=== PATIENT | female | born 1950 | race Hispanic/Latino ===

== ENCOUNTER 2021-10-09 23:48 | Inpatient (IN) | payer MEDICARE, OTHER ==
[~2021-10-09] VITALS: Ht 160 cm; Wt 79.4 kg
[2021-10-10] MEDS ORDERED: ONDANSETRON HCL INJ 2MG/ML 2ML 2 MG/ML VIAL IV STA
[2021-10-10] MEDS ORDERED: Morphine 4mg INJECTION 4 MG/ML INJ IV ONE
[2021-10-10 00:12] LABS: BASOPHILS # (AUTO) 0.1 (0.0-0.1); BASOPHILS % 0.7 % (0.0-1.0); EOSINOPHILS # (AUTO) 0.2 (0.0-0.4); EOSINOPHILS % 1.5 % (0.0-6.0); HEMOGLOBIN 14.1 g/dL (12.0-16.0); LYMPHOCYTES # (AUTO) 1.3 (1.0-3.2); LYMPHOCYTES % 13.6 % (18.0-39.1); MEAN CORPUSCULAR HEMOGLOBIN 30.2 pg (28-32); MEAN CORPUSCULAR HGB CONC 33.6 g/dL (31-35); MEAN CORPUSCULAR VOLUME 89.9 fL (81-99); MONOCYTES # (AUTO) 0.5 (0.2-0.8); MONOCYTES % 5.5 % (4.4-11.3); NEUTROPHILS # (AUTO) 7.6 (2.1-6.9); NEUTROPHILS % 78.4 % (38.7-80.0); PLATELET COUNT 253 x10e3/uL (140-360); RED BLOOD COUNT 4.67 x10e6/uL (3.6-5.1); RED CELL DISTRIBUTION WIDTH 13.9 % (11.7-14.4)
[2021-10-10 00:38] LABS: ALANINE AMINOTRANSFERASE 21 IU/L (0-55); ALBUMIN 3.9 g/dL (3.5-5.0); ALBUMIN/GLOBULIN RATIO 0.9 (0.8-2.0); ALKALINE PHOSPHATASE 79 IU/L (40-150); BLOOD UREA NITROGEN 11 mg/dL (7-26); BUN/CREATININE RATIO 12 (6-25); CALCIUM 10.1 mg/dL (8.4-10.2); CARBON DIOXIDE 25 mmol/L (22-29); CREATINE KINASE 59 IU/L (29-168); CREATININE, SERUM 0.91 mg/dL (0.57-1.11); GLUCOSE 186 mg/dL (74-118)
[2021-10-10 00:45] LABS: ANION GAP 16.6 mmol/L (8-16); CHLORIDE 103 mmol/L (98-107); POTASSIUM 3.6 mmol/L (3.5-5.1); SODIUM 141 mmol/L (136-145)
[2021-10-10 00:48] LABS: CLARITY,URINE CLEAR (CLEAR); COLOR,URINE YELLOW (YELLOW); KETONES,URINE TRACE (NEGATIVE); LEUKOCYTE ESTERASE ,URINE NEGATIVE (NEGATIVE); NITRITE,URINE NEGATIVE (NEGATIVE); PROTEIN,URINE DIPSTICK 2+ (NEGATIVE); URINE UROBILINOGEN 0.2 mg/dL (0.2 - 1)
[2021-10-10 00:55] LABS: BACTERIA,URINE MODERATE /HPF; EPITHELIAL CELLS,URINE FEW /LPF; MUCUS,URINE MANY (RARE); WBC,URINE (MAN) 0-5 /HPF (0-5)
[2021-10-10] MEDS ORDERED: BENZOCAINE/TETRACAINE/BUTAMBEN AERO SPRAY 56 GM CAN TOP ONE (02:00)
[2021-10-10] MEDS ORDERED: PIPERACILLIN/TAZOBACTAM 3.375 GM VIAL ONE (02:08)
[2021-10-10] MEDS: SODIUM CHLORIDE 0.9% 1000ML 1,000 ML IV SCH ×4 (02:15→22:56)
[2021-10-10] MEDS: Morphine 4mg INJECTION 4 MG/ML INJ IV PRN ×3 (05:15→14:52)
[2021-10-10] MEDS ORDERED: IOPAMIDOL 370 MG/ML 100 ML INFUS..BTL INJ ONE (05:53)
[2021-10-10] MEDS: ONDANSETRON HCL INJ 2MG/ML 2ML 2 MG/ML VIAL IV PRN ×2 (09:25→14:40)
[2021-10-10 12:38] VITALS: BP 157/91
[2021-10-10 16:03] VITALS: BP 151/74
[2021-10-10] MEDS ORDERED: HYDRALAZINE HCL 20 MG/ML VIAL IV PRN (18:15)
[2021-10-10] MEDS: HYDROMORPHONE 1MG/1ML INJ IV PRN (18:48)
[2021-10-10 20:00] VITALS: BP 125/66
[2021-10-10] MEDS ORDERED: TRULICITY0.75 MG/0. SC (20:54)
[2021-10-10] MEDS ORDERED: LEVOTHYROXINE88 MCG PO (20:54)
[2021-10-10] MEDS ORDERED: ATORVASTATIN CA10 MG PO (20:54)
[2021-10-10] MEDS ORDERED: GLIPIZIDE5 MG PO (20:54)
[2021-10-10] MEDS ORDERED: METFORMIN HCL500 MG PO (20:54)
[2021-10-10 21:00] VITALS: BP 125/66
[2021-10-11] VITALS (7 sets, daily range): BP systolic 114–167; BP diastolic 54–90
[2021-10-11] MEDS: HYDROMORPHONE 1MG/1ML INJ IV PRN ×2 (02:01→09:29)
[2021-10-11] MEDS: ONDANSETRON HCL INJ 2MG/ML 2ML 2 MG/ML VIAL IV PRN ×2 (02:01→09:29)
[2021-10-11 06:13] LABS: BASOPHILS # (AUTO) 0.1 (0.0-0.1); BASOPHILS % 0.4 % (0.0-1.0); EOSINOPHILS # (AUTO) 0.1 (0.0-0.4); EOSINOPHILS % 0.5 % (0.0-6.0); HEMATOCRIT 41.4 % (34.2-44.1); HEMOGLOBIN 13.5 g/dL (12.0-16.0); LYMPHOCYTES # (AUTO) 1.1 (1.0-3.2); LYMPHOCYTES % 9.5 % (18.0-39.1); MEAN CORPUSCULAR HEMOGLOBIN 29.9 pg (28-32); MEAN CORPUSCULAR HGB CONC 32.6 g/dL (31-35); MEAN CORPUSCULAR VOLUME 91.6 fL (81-99); MONOCYTES % 8.2 % (4.4-11.3); NEUTROPHILS # (AUTO) 9.3 (2.1-6.9); PLATELET COUNT 242 x10e3/uL (140-360); RED BLOOD COUNT 4.52 x10e6/uL (3.6-5.1); RED CELL DISTRIBUTION WIDTH 14.5 % (11.7-14.4)
[2021-10-11] MEDS: Morphine 4mg INJECTION 4 MG/ML INJ IV PRN (06:16)
[2021-10-11 06:50] LABS: ALBUMIN 3.5 g/dL (3.5-5.0); ALBUMIN/GLOBULIN RATIO 0.9 (0.8-2.0); ANION GAP 12.8 mmol/L (8-16); CALCIUM 8.6 mg/dL (8.4-10.2); CREATININE, SERUM 0.98 mg/dL (0.57-1.11); POTASSIUM 3.8 mmol/L (3.5-5.1)
[2021-10-11 06:51] LABS: CHOL/HDL RATIO 4.4 (3.0-3.6); MAGNESIUM 2.1 MG/DL (1.3-2.1); PHOSPHORUS 3.7 MG/DL (2.3-4.7); THYROID STIMULATING HORMONE 2.742 uIU/mL (0.350-4.940)
[2021-10-11] MEDS: SODIUM CHLORIDE 0.9% 1000ML 1,000 ML IV SCH ×2 (09:22→20:26)
[2021-10-11] MEDS: LEVOTHYROXINE SODIUM 100 MCG/VIAL IV SCH (10:42)
[2021-10-11] MEDS ORDERED: SEVOFLURANE INHAL SOLN 250 ML PEN BTL ONE (12:57)
[2021-10-11] MEDS ORDERED: SUCCINYLCHOLINE CHLORIDE 20 MG/ML 10ML VIAL ONE (12:57)
[2021-10-11] MEDS ORDERED: PROPOFOL IV EMULSION 10 MG/ML 20 ML VIAL ONE (12:57)
[2021-10-11] MEDS ORDERED: POVIDONE IODINE 0.05% 0.05 % ML PO ONE (12:57)
[2021-10-11] MEDS ORDERED: ONDANSETRON HCL INJ 2MG/ML 2ML 2 MG/ML VIAL ONE (12:57)
[2021-10-11] MEDS ORDERED: DEXAMETHASONE SOD PHOS INJ 4 MG/ML SDV ONE (12:57)
[2021-10-11] MEDS ORDERED: EPHEDRINE SULFATE INJ 50 MG/ML VIAL ONE (12:57)
[2021-10-11] MEDS ORDERED: ROCURONIUM BROMIDE 10 MG/ML 5ML VIAL IV ONE (12:57)
[2021-10-11] MEDS ORDERED: LIDOCAINE HCL 2% LOCAL INJ 5 ML SDV VIAL INJ ONE (12:57)
[2021-10-11] MEDS ORDERED: FENTANYL CITRATE/PF 100MCG/2 ML INJ ONE (13:07)
[2021-10-11] MEDS ORDERED: LIDOCAINE 1% W/EPINEPHRINE 20 ML VIAL ONE (15:01)
[2021-10-11] MEDS ORDERED: BUPIVACAINE 0.25% 30ML SDV ONE (15:01)
[2021-10-11] MEDS ORDERED: PROMETHAZINE HCL (IM) 25 MG/ML VIAL IM ONE (17:46)
[2021-10-11] MEDS ORDERED: SUGAMMADEX SODIUM 200 MG/2 ML VIAL IV ONE (18:21)
[2021-10-11] MEDS ORDERED: MEPERIDINE HCL INJ 25 MG/ML VIAL ONE (19:16)
[2021-10-12] VITALS: BP 133/68
[2021-10-12 04:00] VITALS: BP 128/65
[2021-10-12] MEDS: SODIUM CHLORIDE 0.9% 1000ML 1,000 ML IV SCH ×3 (04:41→20:04)
[2021-10-12] MEDS: HYDROMORPHONE 1MG/1ML INJ IV PRN ×2 (07:16→14:11)
[2021-10-12 08:19] VITALS: BP 114/52
[2021-10-12] MEDS: LEVOTHYROXINE SODIUM 100 MCG/VIAL IV SCH (09:01)
[2021-10-12] MEDS: Morphine 4mg INJECTION 4 MG/ML INJ IV PRN ×2 (10:40→19:29)
[2021-10-12 11:59] VITALS: BP 99/51
[2021-10-12 15:53] VITALS: BP 98/46
[2021-10-12 20:00] VITALS: BP 110/54
[2021-10-13] VITALS (9 sets, daily range): BP systolic 73–137; BP diastolic 46–66
[2021-10-13] MEDS: HYDROMORPHONE 1MG/1ML INJ IV PRN ×3 (05:50→20:56)
[2021-10-13] MEDS: SODIUM CHLORIDE 0.9% 1000ML 1,000 ML IV SCH ×3 (05:50→20:59)
[2021-10-13 06:05] LABS: BASOPHILS # (AUTO) 0.1 (0.0-0.1); BASOPHILS % 0.5 % (0.0-1.0); EOSINOPHILS # (AUTO) 0.3 (0.0-0.4); EOSINOPHILS % 2.8 % (0.0-6.0); HEMATOCRIT 34.6 % (34.2-44.1); LYMPHOCYTES # (AUTO) 1.1 (1.0-3.2); LYMPHOCYTES % 10.6 % (18.0-39.1); MEAN CORPUSCULAR HEMOGLOBIN 30.1 pg (28-32); MEAN CORPUSCULAR HGB CONC 33.5 g/dL (31-35); MEAN CORPUSCULAR VOLUME 89.9 fL (81-99); MONOCYTES # (AUTO) 0.8 (0.2-0.8); MONOCYTES % 7.7 % (4.4-11.3); NEUTROPHILS # (AUTO) 8.3 (2.1-6.9); NEUTROPHILS % 77.8 % (38.7-80.0); PLATELET COUNT 192 x10e3/uL (140-360); RED BLOOD COUNT 3.85 x10e6/uL (3.6-5.1); RED CELL DISTRIBUTION WIDTH 14.8 % (11.7-14.4)
[2021-10-13 06:07] LABS: HEMOGLOBIN 11.6 g/dL (12.0-16.0)
[2021-10-13 06:25] LABS: ANION GAP 10.1 mmol/L (8-16); CALCIUM 7.6 mg/dL (8.4-10.2); CREATININE, SERUM 0.77 mg/dL (0.57-1.11); POTASSIUM 3.1 mmol/L (3.5-5.1)
[2021-10-13] MEDS: LEVOTHYROXINE SODIUM 100 MCG/VIAL IV SCH (09:25)
[2021-10-13] MEDS: POTASSIUM CHLORIDE 20MEQ/100ML 100 ML IV SCH ×2 (15:30→17:30)
[2021-10-13] MEDS: ONDANSETRON HCL INJ 2MG/ML 2ML 2 MG/ML VIAL IV PRN (20:59)
[2021-10-13] MEDS ORDERED: ACETAMINOPHEN/CODEINE 300MG - 30MG TAB PO PRN (21:15)
[2021-10-14] VITALS (7 sets, daily range): BP systolic 124–148; BP diastolic 55–73
[2021-10-14 06:03] LABS: BASOPHILS % 0.5 % (0.0-1.0); EOSINOPHILS # (AUTO) 0.3 (0.0-0.4); EOSINOPHILS % 3.6 % (0.0-6.0); HEMOGLOBIN 10.2 g/dL (12.0-16.0); LYMPHOCYTES # (AUTO) 0.9 (1.0-3.2); LYMPHOCYTES % 11.7 % (18.0-39.1); MEAN CORPUSCULAR HEMOGLOBIN 29.7 pg (28-32); MEAN CORPUSCULAR HGB CONC 32.9 g/dL (31-35); MEAN CORPUSCULAR VOLUME 90.4 fL (81-99); MONOCYTES # (AUTO) 0.6 (0.2-0.8); MONOCYTES % 7.1 % (4.4-11.3); NEUTROPHILS # (AUTO) 6.2 (2.1-6.9); NEUTROPHILS % 76.6 % (38.7-80.0); PLATELET COUNT 183 x10e3/uL (140-360); RED BLOOD COUNT 3.43 x10e6/uL (3.6-5.1); RED CELL DISTRIBUTION WIDTH 14.6 % (11.7-14.4)
[2021-10-14 06:24] LABS: ANION GAP 8.1 mmol/L (8-16); CALCIUM 7.9 mg/dL (8.4-10.2); CREATININE, SERUM 0.66 mg/dL (0.57-1.11); POTASSIUM 3.1 mmol/L (3.5-5.1)
[2021-10-14] MEDS: Morphine 4mg INJECTION 4 MG/ML INJ IV PRN ×2 (07:55→21:31)
[2021-10-14] MEDS: LEVOTHYROXINE SODIUM 100 MCG/VIAL IV SCH (09:45)
[2021-10-14] MEDS ORDERED: POTASSIUM CHLORIDE 20 MEQ TAB CR PO STA (12:26)
[2021-10-14] MEDS: ONDANSETRON HCL INJ 2MG/ML 2ML 2 MG/ML VIAL IV PRN (21:26)
[2021-10-15] VITALS: BP 119/80
[2021-10-15 04:00] VITALS: BP 121/59
[2021-10-15 07:22] LABS: BASOPHILS % 0.5 % (0.0-1.0); EOSINOPHILS # (AUTO) 0.3 (0.0-0.4); EOSINOPHILS % 4.3 % (0.0-6.0); HEMATOCRIT 36.1 % (34.2-44.1); HEMOGLOBIN 11.6 g/dL (12.0-16.0); LYMPHOCYTES % 13.2 % (18.0-39.1); MEAN CORPUSCULAR HEMOGLOBIN 29.8 pg (28-32); MEAN CORPUSCULAR HGB CONC 32.1 g/dL (31-35); MEAN CORPUSCULAR VOLUME 92.8 fL (81-99); MONOCYTES # (AUTO) 0.6 (0.2-0.8); MONOCYTES % 8.4 % (4.4-11.3); NEUTROPHILS # (AUTO) 5.4 (2.1-6.9); NEUTROPHILS % 73.2 % (38.7-80.0); PLATELET COUNT 229 x10e3/uL (140-360); RED BLOOD COUNT 3.89 x10e6/uL (3.6-5.1); RED CELL DISTRIBUTION WIDTH 14.5 % (11.7-14.4)
[2021-10-15 07:39] LABS: ANION GAP 12.1 mmol/L (8-16); BLOOD UREA NITROGEN < 5 mg/dL (7-26); CALCIUM 8.2 mg/dL (8.4-10.2); CARBON DIOXIDE 27 mmol/L (22-29); CHLORIDE 107 mmol/L (98-107); CREATININE, SERUM 0.73 mg/dL (0.57-1.11); GLUCOSE 148 mg/dL (74-118); MAGNESIUM 1.9 MG/DL (1.3-2.1); POTASSIUM 3.1 mmol/L (3.5-5.1); SODIUM 143 mmol/L (136-145)
[2021-10-15 07:40] LABS: BUN/CREATININE RATIO 7 (6-25)
[2021-10-15 09:00] VITALS: BP 121/59
[2021-10-15 09:16] VITALS: BP 153/73
[2021-10-15] MEDS: LEVOTHYROXINE SODIUM 100 MCG/VIAL IV SCH (09:30)
[2021-10-15 12:29] VITALS: BP 150/66
[2021-10-15] MEDS ORDERED: PROTONIX20 MG PO (13:19)
[2021-10-15] MEDS ORDERED: Acetaminophen/Codeine 300-30MG PO (13:19)
[2021-10-15] MEDS ORDERED: POTASSIUM CHLORIDE 20 MEQ TAB CR PO ONE (14:15)
== END 2021-10-15 16:23 | disposition home or self-care (01) | DRG 337 ==
LOC: ER 23:52 → ERHOLD 10-10 01:51 → MED/SURG3 10-10 12:38
PROVIDERS: ADMIT Internal Medicine; ATTEND Internal Medicine
PROC: 0DNH0ZZ Release Cecum, Open Approach (ICD-10-PCS; 2021-10-11)
PROC: 0DNJ0ZZ Release Appendix, Open Approach (ICD-10-PCS; principal; 2021-10-11 16:47)
PROC: 0DN80ZZ Release Small Intestine, Open Approach (ICD-10-PCS; 2021-10-11 16:47)
DX: K45.0 Other specified abdominal hernia with obstruction, without gangrene (principal); E11.65 Type 2 diabetes mellitus with hyperglycemia; E87.6 Hypokalemia; F41.9 Anxiety disorder, unspecified; E78.5 Hyperlipidemia, unspecified; E89.0 Postprocedural hypothyroidism; Z90.49 Acquired absence of other specified parts of digestive tract; Z88.2 Allergy status to sulfonamides; Z84.89 Family history of other specified conditions
CPT/HCPCS: 0223U; 36415; 74018; 74177; 80048; 80053; 80061; 81001; 82550; 82553; 82948; 83036; 83690; 83735; 84100; 84443; 84484; 85025; 93005; 94799; 99284; J0330; J1100; J1170; J2001; J2175; J2270; J2405; J2543; J2550; J3010; J3480; J7030; Q9967